=== PATIENT | male | born 1950 ===

== ENCOUNTER 2018-10-13 15:36 | Inpatient (IN) ==
[2018-10-13] MEDS ORDERED: ONDANSETRON 4 MG/2 ML VIAL IV STA (16:15)
[2018-10-13] MEDS ORDERED: MORPHINE 4 MG/1 ML VIAL IV STA (16:15)
[2018-10-13] MEDS ORDERED: ONDANSETRON 4 MG/2 ML VIAL IV PRN (16:50)
[2018-10-13] MEDS ORDERED: MORPHINE 4 MG/1 ML VIAL IV PRN (16:50)
[2018-10-13 19:28] LABS: Basophils % 0.3 % (0.0-0.8); Eosinophils % 0.1 % (0.00-10.9); Hematocrit 43.1 VOL% (42.0-52.0); Hemoglobin 13.9 GM/DL (14.0-18.0); Immature Granulocytes % 0.6 %; Immature Granulocytes Absolute 0.04 #; Lymphocytes # 2.4 10*3/uL (1.4-4.0); Lymphocytes % 32.8 % (21.2-54.2); Mean Corpuscular HGB Conc 32.3 GM/DL (32-36); Mean Corpuscular Hemoglobin 28 PG (27-34); Mean Corpuscular Volume 86.5 FL (87-102); Mean Platelet Volume 10.7 FL (9.6-12.0); Monocytes # 1.1 10*3/uL (0.11-0.8); Monocytes % 15.8 % (1.7-12.7); Neutrophils # 3.6 10*3/uL (1.4-7.4); Neutrophils % 50.4 % (38.7-73.9); Platelet Count 120 T/CUMM (130-400); Red Blood Count 4.98 MC/CUMM (3.8-5.5); Red Cell Distribution Width 15.9 % (9.3-17.3); White Blood Count 7.2 T/CUMM (4-12)
[2018-10-13 19:39] LABS: INR 1.3; PT Patient Result 13.8 SECS
[2018-10-13 19:45] LABS: Calcium 8.4 MG/DL (8.5-10.1); Osmolality,Calculated 275.5 MOS/KG (273-304)
[2018-10-13] MEDS: ALBUTEROL/IPRATROPIUM 3 ML NEB RESP TX SCH (20:00)
[2018-10-13] MEDS ORDERED: LEVOFLOXACIN INJ 750 MG in PREMIX 1 EACH IV SCH (20:00)
[2018-10-13] MEDS: PANTOPRAZOLE 40 MG VIAL IV SCH (20:52)
[2018-10-13] MEDS: LORazepam 1 MG TABLET PO SCH (20:53)
[2018-10-13] MEDS: QUEtiapine 100 MG TABLET PO SCH (20:53)
[2018-10-13] MEDS: DIVALPROEX ER 250 MG TABLET PO SCH (20:53)
[2018-10-13] MEDS: METOPROLOL TARTRATE 25 MG TABLET PO SCH (20:54)
[2018-10-13] MEDS: MORPHINE 4 MG/1 ML VIAL IV PRN (20:55)
[2018-10-13 21:10] LABS: Lymphocytes 34 % (20-55); Platelet Estimate Normal; Segmented Neutrophils 59 % (50-85); Total Cells Counted 100
[2018-10-14] MEDS: ALBUTEROL/IPRATROPIUM 3 ML NEB RESP TX SCH ×4 (01:02→19:20)
[2018-10-14] MEDS ORDERED: PHENYLEPHRINE 1 MG/10 ML SYRINGE IV ONE (05:59)
[2018-10-14] MEDS ORDERED: PROPOFOL 0 MG/0 ML BOTTLE IV ONE (05:59)
[2018-10-14] MEDS ORDERED: BUPIVACAINE SPINAL 0.75% 2 ML AMP SPINAL ONE (05:59)
[2018-10-14] MEDS: DIVALPROEX ER 250 MG TABLET PO SCH ×3 (06:25→17:46)
[2018-10-14] MEDS ORDERED: VANCOMYCIN INJ 1,000 MG in SODIUM CHLORIDE 0.9% 250 ML IV ONE (06:30)
[2018-10-14] MEDS ORDERED: ceFAZolin 1,000 MG in SYRINGE 1 EACH IV ONE (06:30)
[2018-10-14] MEDS ORDERED: BUPIVACAINE 0.5% 50 ML VIAL ONE (08:32)
[2018-10-14] MEDS ORDERED: EPINEPHrine 1 MG/ML VIAL ONE (08:32)
[2018-10-14] MEDS ORDERED: BACITRACIN OINT 0.9 GM PACK TOP ONE (08:33)
[2018-10-14] MEDS ORDERED: MAGNESIUM HYDROXIDE SUSP 30 ML UDCUP PO PRN (08:43)
[2018-10-14] MEDS ORDERED: oxyCODONE IR 5 MG TABLET PO PRN (08:43)
[2018-10-14] MEDS ORDERED: DESFLURANE 1 UNIT/15 MINUTE INH ONE (09:29)
[2018-10-14] MEDS ORDERED: ETOMIDATE 40 MG/20 ML VIAL IV ONE (09:30)
[2018-10-14] MEDS ORDERED: ROCURONIUM 100 MG/10 ML VIAL IV ONE (09:30)
[2018-10-14] MEDS ORDERED: fentaNYL 100 MCG/2 ML VIAL ONE (09:30)
[2018-10-14] MEDS ORDERED: LACTATED RINGERS 1,000 ML IV ONE (09:30)
[2018-10-14] MEDS ORDERED: NEOSTIGMINE 10 MG/10 ML VIAL ONE (09:30)
[2018-10-14] MEDS ORDERED: GLYCOPYRROLATE 0.4 MG/2 ML VIAL ONE (09:30)
[2018-10-14 09:38] LABS: Apearance,Urine CLEAR (Clear); Bilirubin,Urine Negative (Negative); Blood, Urine Negative (Negative); Glucose,Urine (UA) Negative (Negative); Ketones,Urine Negative (Negative); Mucus,Urine Occasional /LPF (Occasional); Nitrite,Urine Negative (Negative); Protein,Urine Negative; RBC,Urine 4 /HPF (0-4); Urine Color Amber (Yellow); Urine Specific Gravity 1.024 (1.001-1.035); WBC,Urine 2 /HPF (0-6)
[2018-10-14 09:46] LABS: Basophils % 0.4 % (0.0-0.8); Eosinophils # 0.1 10*3/uL (0.0-0.87); Eosinophils % 0.6 % (0.00-10.9); Hematocrit 42.2 VOL% (42.0-52.0); Hemoglobin 13.3 GM/DL (14.0-18.0); Immature Granulocytes % 0.5 %; Immature Granulocytes Absolute 0.05 #; Lymphocytes # 3.7 10*3/uL (1.4-4.0); Lymphocytes % 36.2 % (21.2-54.2); Mean Corpuscular HGB Conc 31.5 GM/DL (32-36); Mean Corpuscular Hemoglobin 28 PG (27-34); Mean Corpuscular Volume 88.3 FL (87-102); Mean Platelet Volume 10.1 FL (9.6-12.0); Monocytes # 1.6 10*3/uL (0.11-0.8); Monocytes % 15.2 % (1.7-12.7); Neutrophils # 4.8 10*3/uL (1.4-7.4); Neutrophils % 47.1 % (38.7-73.9); Platelet Count 106 T/CUMM (130-400); Red Blood Count 4.78 MC/CUMM (3.8-5.5); Red Cell Distribution Width 15.8 % (9.3-17.3); White Blood Count 10.2 T/CUMM (4-12)
[2018-10-14] MEDS: LORazepam 1 MG TABLET PO SCH ×2 (10:16→20:46)
[2018-10-14] MEDS: DOCUSATE SODIUM 100 MG CAPSULE PO SCH ×2 (10:16→20:46)
[2018-10-14] MEDS: CHOLECALCIFEROL 1,000 UNIT TABLET PO SCH (10:16)
[2018-10-14] MEDS: PANTOPRAZOLE 40 MG VIAL IV SCH ×2 (10:16→20:45)
[2018-10-14] MEDS: METOPROLOL TARTRATE 25 MG TABLET PO SCH ×2 (10:16→20:46)
[2018-10-14] MEDS: ESCITALOPRAM 10 MG TABLET PO SCH (10:16)
[2018-10-14] MEDS: KETOROLAC 30 MG/1 ML VIAL IV SCH ×3 (10:24→20:45)
[2018-10-14] MEDS: LACTATED RINGERS 1,000 ML IV SCH ×2 (10:25→16:01)
[2018-10-14] MEDS: ACETAMINOPHEN 500 MG TABLET PO SCH ×2 (13:20→17:46)
[2018-10-14] MEDS: ceFAZolin 1,000 MG in SYRINGE 1 EACH IV SCH ×2 (15:10→22:42)
[2018-10-14] MEDS: QUEtiapine 100 MG TABLET PO SCH (20:46)
[2018-10-15] MEDS: ACETAMINOPHEN 500 MG TABLET PO SCH ×2 (00:18→06:18)
[2018-10-15] MEDS: ALBUTEROL/IPRATROPIUM 3 ML NEB RESP TX SCH ×4 (00:53→19:22)
[2018-10-15] MEDS: FONDAPARINUX 2.5 MG/0.5 ML SYRINGE SUBCUT SCH (03:20)
[2018-10-15] MEDS: KETOROLAC 30 MG/1 ML VIAL IV SCH (03:20)
[2018-10-15 05:19] LABS: Basophils % 0.6 % (0.0-0.8); Eosinophils # 0.2 10*3/uL (0.0-0.87); Eosinophils % 4.1 % (0.00-10.9); Hematocrit 34.3 VOL% (42.0-52.0); Immature Granulocytes % 0.6 %; Immature Granulocytes Absolute 0.03 #; Lymphocytes # 1.4 10*3/uL (1.4-4.0); Lymphocytes % 27.2 % (21.2-54.2); Mean Corpuscular HGB Conc 32.1 GM/DL (32-36); Mean Corpuscular Hemoglobin 28 PG (27-34); Mean Corpuscular Volume 87.1 FL (87-102); Mean Platelet Volume 10.8 FL (9.6-12.0); Monocytes # 0.9 10*3/uL (0.11-0.8); Monocytes % 18.2 % (1.7-12.7); Neutrophils # 2.5 10*3/uL (1.4-7.4); Neutrophils % 49.3 % (38.7-73.9); Platelet Count 92 T/CUMM (130-400); Red Blood Count 3.94 MC/CUMM (3.8-5.5); Red Cell Distribution Width 15.6 % (9.3-17.3); White Blood Count 5.1 T/CUMM (4-12)
[2018-10-15] MEDS: DIVALPROEX ER 250 MG TABLET PO SCH ×3 (05:27→18:20)
[2018-10-15 05:33] LABS: Osmolality,Calculated 274.5 MOS/KG (273-304); Potassium 3.5 MMOL/L (3.5-5.1)
[2018-10-15 06:29] LABS: Band Neutrophils 13 % (0-10); Eosinophils 5 % (0-10); Lymphocytes 24 % (20-55); Platelet Estimate Decreased; Segmented Neutrophils 51 % (50-85); Smudge Cells 1+; Total Cells Counted 100
[2018-10-15 06:30] LABS: Anisocytosis Slight
[2018-10-15] MEDS: LEVOFLOXACIN INJ 500 MG in PREMIX 1 EACH IV SCH (08:55)
[2018-10-15] MEDS: PANTOPRAZOLE 40 MG VIAL IV SCH ×2 (08:55→20:12)
[2018-10-15] MEDS: CHOLECALCIFEROL 1,000 UNIT TABLET PO SCH (08:59)
[2018-10-15] MEDS: DOCUSATE SODIUM 100 MG CAPSULE PO SCH ×2 (08:59→20:17)
[2018-10-15] MEDS: METOPROLOL TARTRATE 25 MG TABLET PO SCH ×2 (08:59→20:16)
[2018-10-15] MEDS: ESCITALOPRAM 10 MG TABLET PO SCH (08:59)
[2018-10-15] MEDS: LORazepam 1 MG TABLET PO SCH ×2 (08:59→20:16)
[2018-10-15] MEDS: oxyCODONE IR 5 MG TABLET PO PRN (11:45)
[2018-10-15] MEDS: MORPHINE 4 MG/1 ML VIAL IV PRN (13:20)
[2018-10-15] MEDS ORDERED: ACETAMINOPHEN 325 MG TABLET PO PRN (18:03)
[2018-10-15] MEDS ORDERED: ACETAMINOPHEN 325 MG TABLET ONE (18:06)
[2018-10-15] MEDS: QUEtiapine 100 MG TABLET PO SCH (20:15)
[2018-10-15] MEDS: traMADol 50 MG TABLET PO PRN (20:16)
[2018-10-16] MEDS: ALBUTEROL/IPRATROPIUM 3 ML NEB RESP TX SCH ×4 (00:11→20:12)
[2018-10-16] MEDS: oxyCODONE IR 5 MG TABLET PO PRN ×2 (00:28→15:30)
[2018-10-16] MEDS: FONDAPARINUX 2.5 MG/0.5 ML SYRINGE SUBCUT SCH (03:04)
[2018-10-16] MEDS: DIVALPROEX ER 250 MG TABLET PO SCH ×3 (05:22→17:05)
[2018-10-16 05:46] LABS: Basophils % 0.4 % (0.0-0.8); Eosinophils # 0.2 10*3/uL (0.0-0.87); Hematocrit 29.2 VOL% (42.0-52.0); Hemoglobin 9.5 GM/DL (14.0-18.0); Immature Granulocytes % 0.6 %; Immature Granulocytes Absolute 0.03 #; Lymphocytes # 2.2 10*3/uL (1.4-4.0); Lymphocytes % 41.4 % (21.2-54.2); Mean Corpuscular HGB Conc 32.5 GM/DL (32-36); Mean Corpuscular Hemoglobin 28 PG (27-34); Mean Corpuscular Volume 86.6 FL (87-102); Mean Platelet Volume 11.3 FL (9.6-12.0); Monocytes % 18.9 % (1.7-12.7); Neutrophils # 1.9 10*3/uL (1.4-7.4); Neutrophils % 35.7 % (38.7-73.9); Platelet Count 101 T/CUMM (130-400); Red Blood Count 3.37 MC/CUMM (3.8-5.5); White Blood Count 5.3 T/CUMM (4-12)
[2018-10-16 06:10] LABS: Band Neutrophils 6 % (0-10); Eosinophils 3 % (0-10); Lymphocytes 49 % (20-55); Platelet Estimate Decreased; Segmented Neutrophils 27 % (50-85); Total Cells Counted 100
[2018-10-16 06:11] LABS: Anisocytosis Slight; Target Cells Few
[2018-10-16] MEDS: CHOLECALCIFEROL 1,000 UNIT TABLET PO SCH (09:30)
[2018-10-16] MEDS: DOCUSATE SODIUM 100 MG CAPSULE PO SCH ×2 (09:30→20:49)
[2018-10-16] MEDS: ESCITALOPRAM 10 MG TABLET PO SCH (09:30)
[2018-10-16] MEDS: PANTOPRAZOLE 40 MG VIAL IV SCH ×2 (09:30→20:49)
[2018-10-16] MEDS: LORazepam 1 MG TABLET PO SCH ×2 (09:30→20:49)
[2018-10-16] MEDS: METOPROLOL TARTRATE 25 MG TABLET PO SCH ×2 (09:30→20:50)
[2018-10-16] MEDS: SODIUM CHLORIDE 0.9% 1,000 ML IV SCH (16:29)
[2018-10-16] MEDS: traMADol 50 MG TABLET PO PRN (17:05)
[2018-10-16] MEDS: QUEtiapine 100 MG TABLET PO SCH (20:49)
[2018-10-17] MEDS: ALBUTEROL/IPRATROPIUM 3 ML NEB RESP TX SCH ×4 (01:50→20:20)
[2018-10-17] MEDS: SODIUM CHLORIDE 0.9% 1,000 ML IV SCH (04:56)
[2018-10-17] MEDS: FONDAPARINUX 2.5 MG/0.5 ML SYRINGE SUBCUT SCH (04:58)
[2018-10-17] MEDS: DIVALPROEX ER 250 MG TABLET PO SCH ×3 (05:00→15:24)
[2018-10-17 05:10] LABS: Basophils % 0.4 % (0.0-0.8); Eosinophils # 0.2 10*3/uL (0.0-0.87); Eosinophils % 3.7 % (0.00-10.9); Hemoglobin 9.2 GM/DL (14.0-18.0); Immature Granulocytes % 0.7 %; Immature Granulocytes Absolute 0.03 #; Lymphocytes # 1.5 10*3/uL (1.4-4.0); Mean Corpuscular HGB Conc 31.7 GM/DL (32-36); Mean Corpuscular Hemoglobin 28 PG (27-34); Mean Platelet Volume 9.9 FL (9.6-12.0); Monocytes # 0.8 10*3/uL (0.11-0.8); Monocytes % 16.4 % (1.7-12.7); Neutrophils # 2.1 10*3/uL (1.4-7.4); Neutrophils % 45.8 % (38.7-73.9); Platelet Count 124 T/CUMM (130-400); Red Blood Count 3.26 MC/CUMM (3.8-5.5); Red Cell Distribution Width 15.2 % (9.3-17.3); White Blood Count 4.6 T/CUMM (4-12)
[2018-10-17 05:35] LABS: Eosinophils 2 % (0-10); Hypochromasia 1+; Lymphocytes 34 % (20-55); Segmented Neutrophils 55 % (50-85); Total Cells Counted 100
[2018-10-17 05:36] LABS: Microcytosis Slight; Ovalocytes Slight; Platelet Estimate Adequate; Polychromasia Slight
[2018-10-17 05:46] LABS: Calcium 7.5 MG/DL (8.5-10.1); Osmolality,Calculated 273.5 MOS/KG (273-304); Potassium 3.6 MMOL/L (3.5-5.1)
[2018-10-17] MEDS: METOPROLOL TARTRATE 25 MG TABLET PO SCH ×2 (09:18→20:44)
[2018-10-17] MEDS: LORazepam 1 MG TABLET PO SCH ×2 (09:19→20:44)
[2018-10-17] MEDS: CHOLECALCIFEROL 1,000 UNIT TABLET PO SCH (09:19)
[2018-10-17] MEDS: DOCUSATE SODIUM 100 MG CAPSULE PO SCH ×2 (09:19→20:45)
[2018-10-17] MEDS: ESCITALOPRAM 10 MG TABLET PO SCH (09:19)
[2018-10-17] MEDS: LEVOFLOXACIN INJ 500 MG in PREMIX 1 EACH IV SCH (09:28)
[2018-10-17] MEDS: PANTOPRAZOLE 40 MG VIAL IV SCH ×2 (09:30→20:43)
[2018-10-17] MEDS: TAMSULOSIN 0.4 MG CAPSULE PO SCH ×2 (09:59→20:44)
[2018-10-17] MEDS ORDERED: DIVALPROEX ER 250 MG TABLET PO SCH (12:12)
[2018-10-17] MEDS ORDERED: BISACODYL 5 MG TABLET PO ONE (12:16)
[2018-10-17] MEDS ORDERED: MAGNESIUM HYDROXIDE SUSP 30 ML UDCUP PO ONE (12:16)
[2018-10-17] MEDS ORDERED: SODIUM PHOSPHATE ENEMA 133 ML BOTTLE RECTAL ONE (12:18)
[2018-10-17] MEDS ORDERED: LIDOCAINE 2% TOP JELLY 20 ML VIAL INTRAURETH PRN (14:53)
[2018-10-17] MEDS: QUEtiapine 100 MG TABLET PO SCH (20:45)
[2018-10-17] MEDS: VALPROIC ACID 250 MG/5 ML UDCUP PO SCH (20:45)
[2018-10-17] MEDS ORDERED: LINEZOLID 600 MG TABLET PO SCH (21:00)
[2018-10-18] MEDS: ALBUTEROL/IPRATROPIUM 3 ML NEB RESP TX SCH ×3 (00:29→13:15)
[2018-10-18] MEDS: FONDAPARINUX 2.5 MG/0.5 ML SYRINGE SUBCUT SCH (02:54)
[2018-10-18] MEDS: SODIUM CHLORIDE 0.9% 1,000 ML IV SCH ×2 (02:58→09:41)
[2018-10-18 07:52] VITALS: BP 114/63
[2018-10-18] MEDS: CHOLECALCIFEROL 1,000 UNIT TABLET PO SCH (09:41)
[2018-10-18] MEDS: VALPROIC ACID 250 MG/5 ML UDCUP PO SCH (09:41)
[2018-10-18] MEDS: LORazepam 1 MG TABLET PO SCH (09:41)
[2018-10-18] MEDS: ESCITALOPRAM 10 MG TABLET PO SCH (09:41)
[2018-10-18] MEDS: METOPROLOL TARTRATE 25 MG TABLET PO SCH (09:42)
[2018-10-18] MEDS: PANTOPRAZOLE 40 MG VIAL IV SCH (09:42)
[2018-10-18] MEDS: DOCUSATE SODIUM 100 MG CAPSULE PO SCH (09:42)
[2018-10-18] MEDS: TAMSULOSIN 0.4 MG CAPSULE PO SCH (09:42)
[2018-10-18] MEDS ORDERED: MAGNESIUM SULF RIDER 4 GM in PREMIX 1 EACH IV PRN (11:50)
[2018-10-18] MEDS ORDERED: MAGNESIUM SULF RIDER 2 GM in PREMIX 1 EACH IV PRN (11:50)
== END 2018-10-18 15:45 | DRG 470 ==
LOC: EDBD → EDUNIT# → N.ED 15:36 → N.EDINP 17:03 → N.3E 19:17
PROVIDERS: ADMIT Internal Medicine; ATTEND Internal Medicine

== ENCOUNTER 2018-12-26 17:47 | Inpatient (IN) ==
[2018-12-26] MEDS ORDERED: SODIUM CHLORIDE 0.9% 1,000 ML IV STA (18:06)
[2018-12-26] MEDS ORDERED: ONDANSETRON 4 MG/2 ML VIAL IV STA (18:06)
[2018-12-26] MEDS ORDERED: ALBUTEROL/IPRATROPIUM 3 ML NEB RESP TX STA (18:06)
[2018-12-26] MEDS ORDERED: methylPREDNISolone SOD SUC 125 MG/2 ML VIAL IV STA (18:06)
[2018-12-26] MEDS ORDERED: CEFTAROLINE 600 MG in SODIUM CHLORIDE 0.9% 100 ML IV STA (18:06)
[2018-12-26 18:51] LABS: ABG Base Excess -2.7 MMOL/L (-2.5-2.5); ABG HCO3 22.2 MMOL/L (20-26); ABG Oxygen Saturation 97.8 % (95-100); ABG PCO2 32.4 MM HG (35-48); ABG PH 7.416 (7.35-7.45); ABG TCO2 17.7 MMOL/L (23-27)
[2018-12-26 19:00] LABS: INR 1.7; PT Patient Result 17.9 SECS
[2018-12-26 19:02] LABS: Alanine Aminotransferase 25 U/L (16-61); Albumin 2.4 G/DL (3.4-5.0); Alkaline Phosphatase 67 U/L (45-117); Aspartate Amino Transferase 59 U/L (0-37); Blood Urea Nitrogen 37 MG/DL (7-18); Calcium 8.8 MG/DL (8.5-10.1); Glucose 115 MG/DL (74-106); Total Protein 8.4 G/DL (6.4-8.3)
[2018-12-26] MEDS ORDERED: SODIUM CHLORIDE 0.9% 2,250 ML IV ONE (19:05)
[2018-12-26 19:24] LABS: Basophils % 0.2 % (0.0-0.8); Hematocrit 47.5 VOL% (42.0-52.0); Hemoglobin 14.7 GM/DL (14.0-18.0); Immature Granulocytes % 1.5 %; Immature Granulocytes Absolute 0.14 #; Lymphocytes # 1.6 10*3/uL (1.4-4.0); Lymphocytes % 17.4 % (21.2-54.2); Mean Corpuscular HGB Conc 30.9 GM/DL (32-36); Mean Corpuscular Volume 87.5 FL (87-102); Monocytes % 11.3 % (1.7-12.7); NRBC # 0.02 10*3/uL; Neutrophils % 69.6 % (38.7-73.9); Platelet Count 210 T/CUMM (130-400); Red Blood Count 5.43 MC/CUMM (3.8-5.5); Red Cell Distribution Width 15.9 % (9.3-17.3); White Blood Count 9.2 T/CUMM (4-12)
[2018-12-26 19:30] LABS: Band Neutrophils 32 % (0-10); Lymphocytes 15 % (20-55); Segmented Neutrophils 43 % (50-85); Total Cells Counted 100
[2018-12-26] MEDS ORDERED: PIPERACILLIN/TAZOBACTAM 3,375 MG in SODIUM CHLORIDE 0.9% 100 ML IV SCH (19:30)
[2018-12-26 19:31] LABS: Macrocytosis 1+; Spherocytes Slight
[2018-12-26 19:32] LABS: Platelet Estimate Adequate
[2018-12-26 19:41] LABS: Apearance,Urine CLEAR (Clear); Bacteria,Urine Occasional /HPF (Few); Blood, Urine Negative (Negative); Glucose,Urine (UA) Negative (Negative); Hyaline Casts,Urine 18 /LPF (0-3); Ketones,Urine Negative (Negative); Mucus,Urine Occasional /LPF (Occasional); Nitrite,Urine Negative (Negative); Protein,Urine 100 MG/DL; RBC,Urine 5 /HPF (0-4); Squamous Epithelial Cell,Urine Occasional /HPF (0-10); Urine Color Amber (Yellow); Urine Specific Gravity 1.029 (1.001-1.035); WBC,Urine 2 /HPF (0-6)
[2018-12-26 19:44] LABS: Bilirubin,Urine Small mg/dL (Negative)
[2018-12-26 19:45] LABS: INR 1.6; PT Patient Result 17.6 SECS; Partial Thromboplastin Time 28.1 SECS (0-40)
[2018-12-26] MEDS ORDERED: LEVOFLOXACIN INJ 750 MG in PREMIX 1 EACH IV SCH (22:00)
[2018-12-26] MEDS: PROPOFOL 1,000 MG/100 ML BOTTLE IV SCH (22:20)
[2018-12-26] MEDS: SODIUM CHLORIDE 0.9% 1,000 ML IV SCH (22:31)
[2018-12-26] MEDS ORDERED: ONDANSETRON 4 MG/2 ML VIAL IV PRN (22:35)
[2018-12-26] MEDS: MEROPENEM 1,000 MG in SODIUM CHLORIDE 0.9% 100 ML IV SCH (23:18)
[2018-12-27 03:38] LABS: Basophils % 0.1 % (0.0-0.8); Hematocrit 40.6 VOL% (42.0-52.0); Hemoglobin 12.3 GM/DL (14.0-18.0); Immature Granulocytes % 6.7 %; Lymphocytes # 1.1 10*3/uL (1.4-4.0); Mean Corpuscular HGB Conc 30.3 GM/DL (32-36); Mean Corpuscular Volume 88.5 FL (87-102); Mean Platelet Volume 10.3 FL (9.6-12.0); Neutrophils % 74.2 % (38.7-73.9); Platelet Count 171 T/CUMM (130-400); Red Blood Count 4.59 MC/CUMM (3.8-5.5); Red Cell Distribution Width 15.6 % (9.3-17.3)
[2018-12-27 04:11] LABS: Bilirubin,Total 1.2 MG/DL (0.2-1.0); Calcium 7.2 MG/DL (8.5-10.1); Calcium 7.7 MG/DL (8.5-10.1); Osmolality,Calculated 307.6 MOS/KG (273-304); Total Protein 6.7 G/DL (6.4-8.3)
[2018-12-27 04:13] LABS: Troponin I 0.059 NG/ML (0.00-0.045)
[2018-12-27 04:16] LABS: ABG Base Excess -2.1 MMOL/L (-2.5-2.5); ABG HCO3 22.6 MMOL/L (20-26); ABG Oxygen Saturation 96.6 % (95-100); ABG PCO2 35.3 MM HG (35-48); ABG PH 7.402 (7.35-7.45); ABG PO2 90.5 MM HG (80-95); ABG TCO2 19.4 MMOL/L (23-27); Allen Test Positive; Pt O2 Delivery Device Ventilator
[2018-12-27 04:23] LABS: Band Neutrophils 6 % (0-10); Lymphocytes 11 % (20-55); Metamyelocytes 2 %; Myelocytes 4 %; Segmented Neutrophils 75 % (50-85); Total Cells Counted 100
[2018-12-27 04:24] LABS: Anisocytosis Slight
[2018-12-27 04:25] LABS: Microcytosis Slight; Polychromasia Slight
[2018-12-27 04:30] LABS: Ovalocytes Slight; Platelet Estimate Normal
[2018-12-27] MEDS: SODIUM CHLORIDE 0.9% 1,000 ML IV SCH ×2 (07:05→14:19)
[2018-12-27] MEDS ORDERED: ENOXAPARIN 30 MG/0.3 ML SYRINGE SUBCUT SCH (09:00)
[2018-12-27] MEDS: MEROPENEM 1,000 MG in SODIUM CHLORIDE 0.9% 100 ML IV SCH ×2 (09:15→20:28)
[2018-12-27] MEDS: VALPROIC ACID 250 MG/5 ML UDCUP PER TUBE SCH ×2 (09:28→20:28)
[2018-12-27] MEDS ORDERED: PROPOFOL 1,000 MG/100 ML BOTTLE IV ONE (09:35)
[2018-12-27] MEDS ORDERED: LEVOFLOXACIN INJ 150 ML IV ONE (09:55)
[2018-12-27] MEDS ORDERED: VECURONIUM 10 MG VIAL IV ONE (09:59)
[2018-12-27] MEDS ORDERED: ETOMIDATE 20 MG/10 ML VIAL IV ONE (09:59)
[2018-12-27] MEDS: LEVOFLOXACIN INJ 750 MG in PREMIX 1 EACH IV SCH (10:01)
[2018-12-27] MEDS: POTASSIUM CHLORIDE INJ 10 MEQ in SODIUM CHLORIDE 0.45% 1,000 ML IV SCH ×2 (13:06→21:49)
[2018-12-27] MEDS: PROPOFOL 1,000 MG/100 ML BOTTLE IV SCH ×2 (15:34→20:43)
[2018-12-27] MEDS: PROPOFOL 1,000 MG/100 ML BOTTLE IV PRN (21:49)
[2018-12-28 02:51] LABS: ABG Base Excess 0.6 MMOL/L (-2.5-2.5); ABG HCO3 23.9 MMOL/L (20-26); ABG Oxygen Saturation 98.1 % (95-100); ABG PH 7.465 (7.35-7.45); ABG PO2 110.6 MM HG (80-95); Allen Test Positive; Pt O2 Delivery Device Ventilator
[2018-12-28] MEDS: PROPOFOL 1,000 MG/100 ML BOTTLE IV PRN ×4 (05:14→22:42)
[2018-12-28 05:34] LABS: Basophils % 0.1 % (0.0-0.8); Hematocrit 37.5 VOL% (42.0-52.0); Hemoglobin 11.6 GM/DL (14.0-18.0); Immature Granulocytes % 0.5 %; Immature Granulocytes Absolute 0.05 #; Lymphocytes % 9.6 % (21.2-54.2); Mean Corpuscular HGB Conc 30.9 GM/DL (32-36); Mean Platelet Volume 10.6 FL (9.6-12.0); Monocytes % 8.5 % (1.7-12.7); NRBC # 0.03 10*3/uL; Neutrophils % 81.3 % (38.7-73.9); Platelet Count 143 T/CUMM (130-400); Red Blood Count 4.31 MC/CUMM (3.8-5.5); Red Cell Distribution Width 15.4 % (9.3-17.3); White Blood Count 10.1 T/CUMM (4-12)
[2018-12-28 05:52] LABS: Calcium 6.1 MG/DL (8.5-10.1); Osmolality,Calculated 291.6 MOS/KG (273-304)
[2018-12-28 06:45] LABS: Anisocytosis 1+; Band Neutrophils 12 % (0-10); Hypochromasia Slight; Lymphocytes 9 % (20-55); Platelet Estimate Adequate; Segmented Neutrophils 71 % (50-85); Total Cells Counted 100
[2018-12-28] MEDS: ENOXAPARIN 40 MG/0.4 ML SYRINGE SUBCUT SCH (09:02)
[2018-12-28] MEDS: MEROPENEM 1,000 MG in SODIUM CHLORIDE 0.9% 100 ML IV SCH (09:03)
[2018-12-28] MEDS: VALPROIC ACID 250 MG/5 ML UDCUP PER TUBE SCH ×2 (09:03→20:44)
[2018-12-28] MEDS: POTASSIUM CHLORIDE INJ 10 MEQ in SODIUM CHLORIDE 0.45% 1,000 ML IV SCH (09:03)
[2018-12-28] MEDS: LEVOFLOXACIN INJ 750 MG in PREMIX 1 EACH IV SCH (09:03)
[2018-12-28] MEDS: PIPERACILLIN/TAZOBACTAM 3,375 MG in SODIUM CHLORIDE 0.9% 100 ML IV SCH ×2 (10:20→16:30)
[2018-12-28] MEDS ORDERED: DEXTROSE 50% 25 GM/50 ML SYRINGE IV ONE (12:15)
[2018-12-28] MEDS: DEXTROSE 50% 25 GM/50 ML SYRINGE IV PRN ×5 (12:28→18:47)
[2018-12-28] MEDS: DEXTROSE 5% NACL 0.45% 1,000 ML IV SCH (17:33)
[2018-12-28] MEDS: MORPHINE 4 MG/1 ML VIAL IV PRN (20:30)
[2018-12-29] MEDS: MORPHINE 4 MG/1 ML VIAL IV PRN ×3 (01:16→21:00)
[2018-12-29] MEDS: DEXTROSE 5% NACL 0.45% 1,000 ML IV SCH ×3 (01:16→17:30)
[2018-12-29] MEDS: PIPERACILLIN/TAZOBACTAM 3,375 MG in SODIUM CHLORIDE 0.9% 100 ML IV SCH ×3 (02:28→16:39)
[2018-12-29] MEDS: PROPOFOL 1,000 MG/100 ML BOTTLE IV PRN ×4 (04:30→19:58)
[2018-12-29 05:31] LABS: Basophils % 0.4 % (0.0-0.8); Hematocrit 35.1 VOL% (42.0-52.0); Hemoglobin 11.2 GM/DL (14.0-18.0); Immature Granulocytes % 0.9 %; Immature Granulocytes Absolute 0.08 #; Lymphocytes % 11.5 % (21.2-54.2); Mean Corpuscular HGB Conc 31.9 GM/DL (32-36); Mean Corpuscular Volume 83.8 FL (87-102); Mean Platelet Volume 11.1 FL (9.6-12.0); Monocytes % 8.3 % (1.7-12.7); NRBC # 0.05 10*3/uL; Neutrophils % 78.9 % (38.7-73.9); Platelet Count 150 T/CUMM (130-400); Red Blood Count 4.19 MC/CUMM (3.8-5.5); Red Cell Distribution Width 15.2 % (9.3-17.3)
[2018-12-29 05:46] LABS: Calcium 7.7 MG/DL (8.5-10.1); Osmolality,Calculated 280.3 MOS/KG (273-304)
[2018-12-29] MEDS ORDERED: POTASSIUM CHLORIDE RIDER 10 MEQ in PREMIX 1 EACH IV PRN (05:52)
[2018-12-29] MEDS ORDERED: MAGNESIUM SULF RIDER 4 GM in PREMIX 1 EACH IV PRN (05:54)
[2018-12-29 06:04] LABS: Anisocytosis Slight
[2018-12-29 06:05] LABS: Microcytosis 1+; Ovalocytes Slight; Polychromasia Slight; Target Cells Slight
[2018-12-29 06:06] LABS: Platelet Estimate Normal
[2018-12-29 06:34] LABS: ABG Base Excess 3.5 MMOL/L (-2.5-2.5); ABG HCO3 26.2 MMOL/L (20-26); ABG Oxygen Saturation 95.9 % (95-100); ABG PCO2 33.8 MM HG (35-48); ABG PH 7.508 (7.35-7.45); ABG TCO2 27.3 MMOL/L (23-27); Allen Test Positive; Pt O2 Delivery Device Ventilator
[2018-12-29] MEDS: POTASSIUM CHLORIDE RIDER 20 MEQ in PREMIX 1 EACH IV PRN ×2 (06:41→08:31)
[2018-12-29] MEDS: MAGNESIUM SULF RIDER 2 GM in PREMIX 1 EACH IV PRN (06:41)
[2018-12-29] MEDS ORDERED: MAGNESIUM SULF RIDER 2 GM in PREMIX 1 EACH IV ONE (08:05)
[2018-12-29] MEDS: VALPROIC ACID 250 MG/5 ML UDCUP PER TUBE SCH ×2 (10:10→21:16)
[2018-12-29] MEDS: POTASSIUM CHLORIDE 20 MEQ/15 ML UDCUP PER TUBE SCH ×3 (10:10→16:23)
[2018-12-29] MEDS: ENOXAPARIN 40 MG/0.4 ML SYRINGE SUBCUT SCH (10:10)
[2018-12-29] MEDS: LEVOFLOXACIN INJ 750 MG in PREMIX 1 EACH IV SCH (10:11)
[2018-12-30] MEDS: PROPOFOL 1,000 MG/100 ML BOTTLE IV PRN ×4 (00:55→18:05)
[2018-12-30] MEDS: PIPERACILLIN/TAZOBACTAM 3,375 MG in SODIUM CHLORIDE 0.9% 100 ML IV SCH (00:55)
[2018-12-30] MEDS: MORPHINE 4 MG/1 ML VIAL IV PRN ×2 (00:56→04:53)
[2018-12-30] MEDS: DEXTROSE 5% NACL 0.45% 1,000 ML IV SCH ×2 (01:31→16:18)
[2018-12-30 04:23] LABS: Basophils % 0.5 % (0.0-0.8); Eosinophils % 0.5 % (0.00-10.9); Hematocrit 34.7 VOL% (42.0-52.0); Hemoglobin 10.9 GM/DL (14.0-18.0); Immature Granulocytes Absolute 0.31 #; Lymphocytes # 1.1 10*3/uL (1.4-4.0); Lymphocytes % 16.9 % (21.2-54.2); Mean Corpuscular HGB Conc 31.4 GM/DL (32-36); Monocytes % 14.5 % (1.7-12.7); NRBC # 0.03 10*3/uL; Neutrophils % 62.6 % (38.7-73.9); Platelet Count 159 T/CUMM (130-400); Red Blood Count 4.08 MC/CUMM (3.8-5.5); White Blood Count 6.3 T/CUMM (4-12)
[2018-12-30 04:58] LABS: Calcium 7.6 MG/DL (8.5-10.1); Osmolality,Calculated 282.1 MOS/KG (273-304)
[2018-12-30 05:42] LABS: ABG Base Excess 5.2 MMOL/L (-2.5-2.5); ABG HCO3 29.1 MMOL/L (20-26); ABG Oxygen Saturation 98.5 % (95-100); ABG PH 7.488 (7.35-7.45); ABG TCO2 25.5 MMOL/L (23-27); Allen Test Positive; Pt O2 Delivery Device Ventilator
[2018-12-30] MEDS: MAGNESIUM SULF RIDER 2 GM in PREMIX 1 EACH IV PRN (06:30)
[2018-12-30] MEDS ORDERED: MAGNESIUM SULF RIDER 2 GM in PREMIX 1 EACH IV ONE (07:24)
[2018-12-30] MEDS ORDERED: AMIKACIN 500 MG in SODIUM CHLORIDE 0.9% 100 ML IV SCH (07:30)
[2018-12-30] MEDS: VALPROIC ACID 250 MG/5 ML UDCUP PER TUBE SCH ×2 (08:53→20:20)
[2018-12-30] MEDS: CEFUROXIME 500 MG TABLET PEG SCH ×2 (08:53→20:21)
[2018-12-30] MEDS: ENOXAPARIN 40 MG/0.4 ML SYRINGE SUBCUT SCH (08:54)
[2018-12-30] MEDS: POTASSIUM CHLORIDE 20 MEQ/15 ML UDCUP PER TUBE SCH ×3 (08:54→16:12)
[2018-12-30] MEDS ORDERED: LEVOFLOXACIN 500 MG TABLET PEG SCH (09:00)
[2018-12-30] MEDS: SODIUM CHLORIDE 0.9% IV SCH (11:07)
[2018-12-30] MEDS: TOBRAMYCIN IV SCH (11:07)
[2018-12-30] MEDS ORDERED: DIGOXIN 0.5 MG/2 ML AMP IV ONE (11:32)
[2018-12-30] MEDS ORDERED: METOPROLOL TARTRATE 5 MG/5 ML VIAL IV ONE (11:33)
[2018-12-30] MEDS ORDERED: DIGOXIN 0.5 MG/2 ML AMP ONE (11:34)
[2018-12-30] MEDS: methylPREDNISolone SOD SUC 40 MG/1 ML VIAL IV SCH ×2 (13:06→20:21)
[2018-12-31] MEDS: PROPOFOL 1,000 MG/100 ML BOTTLE IV PRN ×2 (00:46→07:54)
[2018-12-31 03:18] LABS: ABG HCO3 28.9 MMOL/L (20-26); ABG Oxygen Saturation 96.1 % (95-100); ABG PCO2 40.5 MM HG (35-48); ABG PH 7.465 (7.35-7.45); ABG TCO2 25.8 MMOL/L (23-27); Allen Test Positive; Pt O2 Delivery Device Ventilator
[2018-12-31 03:52] LABS: Basophils % 0.7 % (0.0-0.8); Hematocrit 35.5 VOL% (42.0-52.0); Hemoglobin 11.3 GM/DL (14.0-18.0); Immature Granulocytes % 5.7 %; Immature Granulocytes Absolute 0.35 #; Lymphocytes % 16.1 % (21.2-54.2); Mean Corpuscular HGB Conc 31.8 GM/DL (32-36); Mean Corpuscular Volume 84.3 FL (87-102); Mean Platelet Volume 10.4 FL (9.6-12.0); Neutrophils % 65.5 % (38.7-73.9); Platelet Count 179 T/CUMM (130-400); Red Blood Count 4.21 MC/CUMM (3.8-5.5); Red Cell Distribution Width 15.2 % (9.3-17.3); White Blood Count 6.1 T/CUMM (4-12)
[2018-12-31 04:17] LABS: Calcium 8.2 MG/DL (8.5-10.1); Osmolality,Calculated 287.8 MOS/KG (273-304)
[2018-12-31 05:02] LABS: Atypical Lymphocytes Few; Band Neutrophils 9 % (0-10); Hypochromasia Slight; Lymphocytes 22 % (20-55); Myelocytes 2 %; Platelet Estimate Normal; Polychromasia Few; Reactive Lymphocytes Few; Segmented Neutrophils 56 % (50-85); Total Cells Counted 100
[2018-12-31 05:03] LABS: Burr Cells 1+
[2018-12-31] MEDS: methylPREDNISolone SOD SUC 40 MG/1 ML VIAL IV SCH ×3 (05:30→20:09)
[2018-12-31] MEDS: ENOXAPARIN 40 MG/0.4 ML SYRINGE SUBCUT SCH (08:16)
[2018-12-31] MEDS: CEFUROXIME 500 MG TABLET PEG SCH ×2 (08:16→20:09)
[2018-12-31] MEDS: TOBRAMYCIN IV SCH (08:16)
[2018-12-31] MEDS: VALPROIC ACID 250 MG/5 ML UDCUP PER TUBE SCH ×2 (08:16→20:09)
[2018-12-31] MEDS: SODIUM CHLORIDE 0.9% IV SCH (08:16)
[2018-12-31] MEDS: DEXTROSE 5% NACL 0.45% 1,000 ML IV SCH (10:17)
[2018-12-31] MEDS: MORPHINE 4 MG/1 ML VIAL IV PRN ×2 (12:18→21:02)
[2019-01-01] MEDS: DEXTROSE 5% NACL 0.45% 1,000 ML IV SCH ×2 (03:01→19:02)
[2019-01-01] MEDS: methylPREDNISolone SOD SUC 40 MG/1 ML VIAL IV SCH ×3 (03:49→20:07)
[2019-01-01 04:07] LABS: ABG Base Excess 5.7 MMOL/L (-2.5-2.5); ABG HCO3 29.3 MMOL/L (20-26); ABG Oxygen Saturation 87.3 % (95-100); ABG PCO2 38.8 MM HG (35-48); ABG PH 7.496 (7.35-7.45); ABG PO2 51.9 MM HG (80-95); ABG TCO2 30.5 MMOL/L (23-27); Allen Test Positive
[2019-01-01] MEDS: MORPHINE 4 MG/1 ML VIAL IV PRN (04:09)
[2019-01-01 05:04] LABS: Basophils # 0.1 10*3/uL (0.0-0.2); Basophils % 0.5 % (0.0-0.8); Hematocrit 36.9 VOL% (42.0-52.0); Hemoglobin 11.9 GM/DL (14.0-18.0); Immature Granulocytes % 5.4 %; Immature Granulocytes Absolute 0.56 #; Lymphocytes # 2.1 10*3/uL (1.4-4.0); Lymphocytes % 20.6 % (21.2-54.2); Mean Corpuscular HGB Conc 32.2 GM/DL (32-36); Mean Corpuscular Volume 83.1 FL (87-102); Monocytes % 14.9 % (1.7-12.7); Neutrophils % 58.6 % (38.7-73.9); Platelet Count 292 T/CUMM (130-400); Red Blood Count 4.44 MC/CUMM (3.8-5.5); Red Cell Distribution Width 15.4 % (9.3-17.3); White Blood Count 10.4 T/CUMM (4-12)
[2019-01-01 05:32] LABS: Calcium 7.9 MG/DL (8.5-10.1); Osmolality,Calculated 283.1 MOS/KG (273-304)
[2019-01-01 05:40] LABS: Total Cells Counted 100
[2019-01-01 05:41] LABS: Band Neutrophils 6 % (0-10); Eosinophils 2 % (0-10); Hypochromasia 2+; Lymphocytes 18 % (20-55); Platelet Estimate Normal; Segmented Neutrophils 58 % (50-85)
[2019-01-01] MEDS ORDERED: FUROSEMIDE 40 MG/4 ML VIAL IV ONE (08:17)
[2019-01-01] MEDS ORDERED: MAGNESIUM SULF RIDER 2 GM in PREMIX 1 EACH IV ONE (08:19)
[2019-01-01] MEDS: ENOXAPARIN 40 MG/0.4 ML SYRINGE SUBCUT SCH (09:08)
[2019-01-01] MEDS: CEFUROXIME 500 MG TABLET PEG SCH ×2 (09:14→20:19)
[2019-01-01] MEDS: VALPROIC ACID 250 MG/5 ML UDCUP PER TUBE SCH ×2 (09:14→20:19)
[2019-01-01] MEDS: SODIUM CHLORIDE 0.9% IV SCH (09:19)
[2019-01-01] MEDS: TOBRAMYCIN IV SCH (09:19)
[2019-01-02] MEDS: DEXTROSE 5% NACL 0.45% 1,000 ML IV SCH ×2 (10:35→23:04)
[2019-01-02] MEDS: CEFUROXIME 500 MG TABLET PEG SCH ×2 (10:36→21:22)
[2019-01-02] MEDS: VALPROIC ACID 250 MG/5 ML UDCUP PER TUBE SCH ×2 (10:37→21:22)
[2019-01-02] MEDS: methylPREDNISolone SOD SUC 40 MG/1 ML VIAL IV SCH ×2 (10:42→21:20)
[2019-01-02] MEDS: MORPHINE 4 MG/1 ML VIAL IV PRN (21:26)
[2019-01-03] MEDS: DEXTROSE 5% NACL 0.45% 1,000 ML IV SCH (02:27)
[2019-01-03 05:22] LABS: Basophils % 0.4 % (0.0-0.8); Hematocrit 35.9 VOL% (42.0-52.0); Hemoglobin 11.4 GM/DL (14.0-18.0); Immature Granulocytes % 2.5 %; Immature Granulocytes Absolute 0.28 #; Lymphocytes # 1.7 10*3/uL (1.4-4.0); Lymphocytes % 15.7 % (21.2-54.2); Mean Corpuscular HGB Conc 31.8 GM/DL (32-36); Mean Corpuscular Volume 83.9 FL (87-102); Mean Platelet Volume 10.1 FL (9.6-12.0); NRBC # 0.04 10*3/uL; Neutrophils % 73.4 % (38.7-73.9); Platelet Count 333 T/CUMM (130-400); Red Blood Count 4.28 MC/CUMM (3.8-5.5); Red Cell Distribution Width 15.3 % (9.3-17.3); White Blood Count 11.1 T/CUMM (4-12)
[2019-01-03 05:27] LABS: INR 1.2; PT Patient Result 12.9 SECS
[2019-01-03 05:43] LABS: Band Neutrophils 2 % (0-10); Lymphocytes 15 % (20-55); Nucleated Red Blood Cells 2 (0-5); Segmented Neutrophils 76 % (50-85); Total Cells Counted 100
[2019-01-03 05:44] LABS: Atypical Lymphocytes Few; Hypochromasia 1+; Microcytosis Slight; Polychromasia Slight
[2019-01-03 05:45] LABS: Platelet Estimate Normal
[2019-01-03] MEDS ORDERED: LACTATED RINGERS 1,000 ML IV SCH (08:00)
[2019-01-03] MEDS: methylPREDNISolone SOD SUC 40 MG/1 ML VIAL IV SCH (08:44)
[2019-01-03] MEDS ORDERED: PROPOFOL 200 MG/20 ML VIAL IV ONE (09:00)
[2019-01-03] MEDS ORDERED: LIDOCAINE 2% 5 ML VIAL ONE (09:00)
[2019-01-03] MEDS: VALPROIC ACID 250 MG/5 ML UDCUP PER TUBE SCH ×2 (09:05→21:53)
[2019-01-03] MEDS: CEFUROXIME 500 MG TABLET PEG SCH ×2 (09:05→21:53)
[2019-01-03] MEDS ORDERED: GLUCAGON 1 MG VIAL IM PRN (16:10)
[2019-01-03] MEDS: MORPHINE 4 MG/1 ML VIAL IV PRN (17:03)
[2019-01-03] MEDS ORDERED: QUEtiapine 100 MG TABLET PO SCH (21:00)
[2019-01-03] MEDS: LORazepam 1 MG TABLET PO SCH (21:53)
[2019-01-04] MEDS: DEXTROSE 5% NACL 0.45% 1,000 ML IV SCH (00:56)
[2019-01-04 05:49] LABS: Basophils % 0.1 % (0.0-0.8); Eosinophils % 0.1 % (0.00-10.9); Hematocrit 34.9 VOL% (42.0-52.0); Hemoglobin 11.2 GM/DL (14.0-18.0); Immature Granulocytes % 1.5 %; Immature Granulocytes Absolute 0.14 #; Lymphocytes # 2.5 10*3/uL (1.4-4.0); Lymphocytes % 26.5 % (21.2-54.2); Mean Corpuscular HGB Conc 32.1 GM/DL (32-36); Mean Corpuscular Volume 83.7 FL (87-102); Mean Platelet Volume 9.3 FL (9.6-12.0); Monocytes % 5.7 % (1.7-12.7); Neutrophils % 66.1 % (38.7-73.9); Platelet Count 299 T/CUMM (130-400); Red Blood Count 4.17 MC/CUMM (3.8-5.5); Red Cell Distribution Width 15.9 % (9.3-17.3); White Blood Count 9.4 T/CUMM (4-12)
[2019-01-04 06:07] LABS: Calcium 8.4 MG/DL (8.5-10.1); Osmolality,Calculated 279.3 MOS/KG (273-304)
[2019-01-04 06:14] LABS: Calcium 8.4 MG/DL (8.5-10.1); Osmolality,Calculated 279.3 MOS/KG (273-304)
[2019-01-04] MEDS: INSULIN REGULAR 100 UNIT/ML SUBCUT SCH ×2 (08:07→12:01)
[2019-01-04] MEDS ORDERED: methylPREDNISolone SOD SUC 40 MG/1 ML VIAL IV SCH (09:00)
[2019-01-04] MEDS ORDERED: ESCITALOPRAM 10 MG TABLET PO SCH (09:00)
[2019-01-04] MEDS: LORazepam 1 MG TABLET PO SCH (10:01)
[2019-01-04] MEDS: VALPROIC ACID 250 MG/5 ML UDCUP PER TUBE SCH (10:02)
[2019-01-04 13:53] VITALS: BP 105/65
== END 2019-01-04 13:40 | DRG 870 ==
LOC: EDUNIT# → EDBD → N.ED 17:47 → N.EDINP 19:55 → SUATTDRO 19:55 → N.EDINP 12-27 11:10 → N.ICU 12-27 14:24 → N.5E 01-01 21:27
PROVIDERS: ADMIT Internal Medicine; ATTEND Internal Medicine
PROC: EGDWPEG (ICD-10-PCS; 2019-01-03 10:20)